=== PATIENT | female | born 1985 | race Asian ===

== ENCOUNTER 2019-08-06 20:28 | Inpatient (IN) | payer OTHER ==
[2019-08-06] VITALS (9 sets, daily range): BP systolic 154–207; BP diastolic 89–117
[~2019-08-06] VITALS: Ht 157.5 cm; Wt 104.0 kg
[~2019-08-06 20:28] MED LIST: PRENATAL VITAMIN
[2019-08-06] MEDS ORDERED: hydrALAzine 20 MG/ML, 1ML ONE ×2 (21:14→22:11)
[2019-08-06] MEDS: LACTATED RINGERS 1,000 ML IV SCH (21:20)
[2019-08-06] MEDS ORDERED: hydrALAzine 20 MG/ML, 1ML IVPush ONE ×3 (21:30)
[2019-08-06] MEDS ORDERED: PLEASE ENTER HEIGHT AND WEIGHT MC SCH (21:30)
[2019-08-06] MEDS ORDERED: LABETALOL 20 MG/4 ML IVPush ONE (21:30)
[2019-08-06 21:47] LABS: AMPHETAMINE SCREEN, URINE Positive (Negative); BARBITURATE SCREEN, URINE Negative (Negative); BENZODIAZEPINE SCREEN, URINE Negative (Negative); CANNABINOID SCREEN, URINE Negative (Negative); COCAINE SCREEN, URINE Negative (Negative); METHADONE SCREEN, URINE Negative (Negative); OPIATE SCREEN, URINE Negative (Negative); PROTEIN/CREATININE RATIO,URINE 4000 (0-200); TOTAL PROTEIN,URINE RANDOM 628 mg/dL (0-12)
[2019-08-06] MEDS ORDERED: hydrALAzine 20 MG/ML, 1ML IV ONE ×2 (22:30→23:30)
[2019-08-06] MEDS ORDERED: ACETAMINOPHEN 325 MG TABLET ONE (23:15)
[2019-08-06] MEDS: ACETAMINOPHEN 325 MG TABLET PO PRN (23:17)
[2019-08-06] MEDS: PHENAZOPYRIDINE 200 MG TABLET PO SCH (23:43)
[2019-08-06] MEDS: CEFTRIAXONE PMX 2GM/50ML 50 ML IV SCH (23:51)
[2019-08-07] VITALS (13 sets, daily range): BP systolic 140–174; BP diastolic 74–100
[2019-08-07] MEDS ORDERED: DIPHENHYDRAMINE 25 MG CAPSULE PO PRN
[2019-08-07] MEDS ORDERED: ACETAMINOPHEN 325 MG TABLET ONE ×3 (02:25→23:43)
[2019-08-07] MEDS: ACETAMINOPHEN 325 MG TABLET PO PRN ×3 (02:26→23:44)
[2019-08-07] MEDS ORDERED: hydrALAzine 20 MG/ML, 1ML IV ONE ×2 (04:00→14:00)
[2019-08-07] MEDS ORDERED: niFEDipine ER 30 MG TABLET.ER ONE (05:38)
[2019-08-07] MEDS: LACTATED RINGERS 1,000 ML IV SCH (05:51)
[2019-08-07] MEDS ORDERED: niFEDipine ER 30 MG TABLET.ER PO SCH (06:00)
[2019-08-07] MEDS ORDERED: hydrALAzine 20 MG/ML, 1ML IVPush ONE ×3 (07:30)
[2019-08-07] MEDS ORDERED: hydrALAzine 20 MG/ML, 1ML ONE ×2 (07:33→14:04)
[2019-08-07] MEDS ORDERED: BETAMETHASONE 6 MG/ML, 5ML IM ONE (07:36)
[2019-08-07] MEDS: BETAMETHASONE 6 MG/ML, 5ML IM SCH (07:48)
[2019-08-07] MEDS ORDERED: OXYcodone/APAP 5/325MG TABLET ONE ×3 (08:23→18:08)
[2019-08-07] MEDS: OXYcodone/APAP 5/325MG TABLET PO PRN ×3 (08:26→18:11)
[2019-08-07] MEDS: PHENAZOPYRIDINE 200 MG TABLET PO SCH ×2 (08:27→20:17)
[2019-08-07] MEDS ORDERED: hydrALAzine 20 MG/ML, 1ML IV PRN (18:00)
[2019-08-07] MEDS ORDERED: MAGNESIUM SULFATE PMX 4GM/100M 100 ML ONE (18:25)
[2019-08-07] MEDS ORDERED: MAGNESIUM SULFATE PMX 2GM/50ML 0 ML ONE (18:26)
[2019-08-07] MEDS ORDERED: MAGNESIUM SULFATE PMX 4GM/100M 100 ML IVPB ONE (18:30)
[2019-08-07] MEDS: MAGNESIUM SULF. PMX 20GM/500ML 500 ML IV SCH (18:53)
[2019-08-07 18:55] LABS: BASOPHILS # (AUTO) 0.01 x10^3/uL (0-0.1); BASOPHILS % (AUTO) 0 % (0-1); EOSINOPHILS # (AUTO) 0.06 x10^3/uL (0-0.4); EOSINOPHILS % (AUTO) 1 % (1-7); LYMPHOCYTES # (AUTO) 1.14 x10^3/uL (1-3.4); LYMPHOCYTES % (AUTO) 15 % (22-44); MEAN CORPUSCULAR HEMOGLOBIN 29.7 pg (27.0-34.8); MEAN PLATELET VOLUME 9.3 fL (7.4-10.4); MONOCYTES # (AUTO) 0.17 x10^3/uL (0.2-0.8); MONOCYTES % (AUTO) 2 % (2-9); NEUTROPHILS # (AUTO) 6.04 x10^3/uL (1.8-6.8); NEUTROPHILS % (AUTO) 82 % (42-75); PLATELET COUNT 165 x10^3/uL (130-400); RED BLOOD COUNT 4.96 x10^6/uL (3.82-5.3)
[2019-08-07 18:59] LABS: ANION GAP 5 mmol/L (5-15); CALCIUM 8.6 mg/dL (8.5-10.1); CHLORIDE 105 mmol/L (98-107)
[2019-08-07 19:04] LABS: ALANINE AMINOTRANSFERASE 27 U/L (12-78); ALKALINE PHOSPHATASE 153 U/L (45-117); BILIRUBIN,TOTAL 0.2 mg/dL (0.2-1.0); CREATININE 0.69 mg/dL (0.55-1.02); TOTAL PROTEIN 6.3 g/dL (6.4-8.2)
[2019-08-07] MEDS ORDERED: NEWBORN KIT ONE (19:05)
[2019-08-07 20:21] LABS: MD MORPH REVIEW ONLY
[2019-08-07 20:23] LABS: <PLATELET ESTIMATE> ADEQUATE; ANISOCYTOSIS 1+; POLYCHROMASIA 1+
[2019-08-07 20:24] LABS: LARGE PLATELETS 1+
[2019-08-07 20:35] LABS: AMPHETAMINE SCREEN, URINE Positive (Negative); BARBITURATE SCREEN, URINE Negative (Negative); BENZODIAZEPINE SCREEN, URINE Negative (Negative); CANNABINOID SCREEN, URINE Negative (Negative); COCAINE SCREEN, URINE Negative (Negative); METHADONE SCREEN, URINE Negative (Negative); OPIATE SCREEN, URINE Negative (Negative)
[2019-08-07] MEDS: CEFTRIAXONE PMX 2GM/50ML 50 ML IV SCH (23:06)
[2019-08-08] MEDS: MAGNESIUM SULF. PMX 20GM/500ML 500 ML IV SCH ×2 (03:12→14:29)
[2019-08-08] MEDS: LACTATED RINGERS 1,000 ML IV SCH ×4 (03:19→20:04)
[2019-08-08] MEDS ORDERED: OXYcodone/APAP 5/325MG TABLET ONE (04:49)
[2019-08-08] MEDS ORDERED: niFEDipine ER 60 MG TABLET.ER PO ONE (04:50)
[2019-08-08] MEDS ORDERED: niFEDipine ER 30 MG TABLET.ER ONE (04:50)
[2019-08-08] MEDS: PHENAZOPYRIDINE 200 MG TABLET PO SCH ×3 (04:53→18:53)
[2019-08-08] MEDS: niFEDipine ER 60 MG TABLET.ER PO SCH (04:55)
[2019-08-08] MEDS: OXYcodone/APAP 5/325MG TABLET PO PRN (04:55)
[2019-08-08 05:40] LABS: BASOPHILS # (AUTO) 0.03 x10^3/uL (0-0.1); BASOPHILS % (AUTO) 0 % (0-1); EOSINOPHILS # (AUTO) 0.13 x10^3/uL (0-0.4); EOSINOPHILS % (AUTO) 1 % (1-7); LYMPHOCYTES # (AUTO) 1.35 x10^3/uL (1-3.4); LYMPHOCYTES % (AUTO) 11 % (22-44); MD NO; MEAN CORPUSCULAR HEMOGLOBIN 29.7 pg (27.0-34.8); MEAN CORPUSCULAR HGB CONC 32.8 g/dL (32.4-35.8); MEAN CORPUSCULAR VOLUME 90.5 fL (80-100); MEAN PLATELET VOLUME 9.3 fL (7.4-10.4); MONOCYTES # (AUTO) 0.53 x10^3/uL (0.2-0.8); MONOCYTES % (AUTO) 4 % (2-9); NEUTROPHILS # (AUTO) 10.76 x10^3/uL (1.8-6.8); NEUTROPHILS % (AUTO) 84 % (42-75); PLATELET COUNT 183 x10^3/uL (130-400); RED BLOOD COUNT 4.62 x10^6/uL (3.82-5.3); RED CELL DISTRIBUTION WIDTH 14.1 % (9.6-15.2)
[2019-08-08 05:48] LABS: CHLORIDE 106 mmol/L (98-107)
[2019-08-08 06:03] LABS: ALANINE AMINOTRANSFERASE 31 U/L (12-78); ALKALINE PHOSPHATASE 151 U/L (45-117); ANION GAP 8 mmol/L (5-15); BILIRUBIN,TOTAL 0.3 mg/dL (0.2-1.0); CALCIUM 7.9 mg/dL (8.5-10.1); CREATININE 0.56 mg/dL (0.55-1.02); TOTAL PROTEIN 6.2 g/dL (6.4-8.2)
[2019-08-08] MEDS ORDERED: DOCUSATE 100 MG CAPSULE ONE (07:58)
[2019-08-08] MEDS ORDERED: ACETAMINOPHEN 325 MG TABLET ONE (07:58)
[2019-08-08] MEDS: ACETAMINOPHEN 325 MG TABLET PO PRN (08:09)
[2019-08-08] MEDS: DOCUSATE 100 MG CAPSULE PO SCH ×2 (08:10→21:00)
[2019-08-08] MEDS: BETAMETHASONE 6 MG/ML, 5ML IM SCH (08:10)
[2019-08-08] MEDS: CEFTRIAXONE PMX 2GM/50ML 50 ML IV SCH (22:51)
[2019-08-09] MEDS: LACTATED RINGERS 1,000 ML IV SCH ×5 (01:30→17:30)
[2019-08-09] MEDS ORDERED: MAGNESIUM SULF. PMX 20GM/500ML 500 ML IV ONE ×3 (01:32→16:18)
[2019-08-09] MEDS: MAGNESIUM SULF. PMX 20GM/500ML 500 ML IV SCH ×3 (01:35→19:11)
[2019-08-09 04:44] LABS: BASOPHILS # (AUTO) 0.04 x10^3/uL (0-0.1); BASOPHILS % (AUTO) 0 % (0-1); EOSINOPHILS # (AUTO) 0.27 x10^3/uL (0-0.4); EOSINOPHILS % (AUTO) 2 % (1-7); LYMPHOCYTES # (AUTO) 1.52 x10^3/uL (1-3.4); LYMPHOCYTES % (AUTO) 9 % (22-44); MD NO; MEAN CORPUSCULAR HGB CONC 33.2 g/dL (32.4-35.8); MEAN CORPUSCULAR VOLUME 90.3 fL (80-100); MEAN PLATELET VOLUME 9.2 fL (7.4-10.4); MONOCYTES # (AUTO) 0.99 x10^3/uL (0.2-0.8); MONOCYTES % (AUTO) 6 % (2-9); NEUTROPHILS # (AUTO) 14.51 x10^3/uL (1.8-6.8); NEUTROPHILS % (AUTO) 84 % (42-75); PLATELET COUNT 197 x10^3/uL (130-400); RED BLOOD COUNT 4.62 x10^6/uL (3.82-5.3)
[2019-08-09 04:45] LABS: ANION GAP 6 mmol/L (5-15); CALCIUM 7.3 mg/dL (8.5-10.1); CHLORIDE 106 mmol/L (98-107)
[2019-08-09 04:49] LABS: ALANINE AMINOTRANSFERASE 50 U/L (12-78); ALKALINE PHOSPHATASE 153 U/L (45-117); BILIRUBIN,TOTAL 0.8 mg/dL (0.2-1.0); CREATININE 0.86 mg/dL (0.55-1.02); TOTAL PROTEIN 6.2 g/dL (6.4-8.2)
[2019-08-09] MEDS ORDERED: hydrALAzine 20 MG/ML, 1ML ONE (05:21)
[2019-08-09] MEDS ORDERED: hydrALAzine 20 MG/ML, 1ML IV ONE (05:30)
[2019-08-09] MEDS ORDERED: niFEDipine ER 60 MG TABLET.ER PO ONE (07:23)
[2019-08-09] MEDS: niFEDipine ER 60 MG TABLET.ER PO SCH (07:26)
[2019-08-09] MEDS ORDERED: DOCUSATE 100 MG CAPSULE ONE (08:00)
[2019-08-09] MEDS: DOCUSATE 100 MG CAPSULE PO SCH ×2 (08:02→21:00)
[2019-08-09] MEDS ORDERED: METHYLERGONOVINE 0.2MG TABLET ONE (10:56)
[2019-08-09] MEDS ORDERED: OXYTOCIN 30U/ 0.9% NaCL 500ML 500 ML ONE (15:26)
[2019-08-09] MEDS ORDERED: METOCLOPRAMIDE 5 MG/ML, 2ML ONE (15:26)
[2019-08-09] MEDS ORDERED: SODIUM CITRATE/CITRIC ACID 30 ML UDC ONE (15:26)
[2019-08-09] MEDS ORDERED: OXYTOCIN 10 UNITS/ML, 1ML ONE (15:37)
[2019-08-09] MEDS ORDERED: ONDANSETRON 2MG/ML, 2ML ONE (15:37)
[2019-08-09] MEDS ORDERED: PHENYLEPHRINE 10 MG/ML ONE (15:37)
[2019-08-09] MEDS ORDERED: CEFAZOLIN 1,000 MG ONE (15:37)
[2019-08-09] MEDS ORDERED: EPHEDRINE 50 MG/ML, 1ML ONE (15:37)
[2019-08-09] MEDS ORDERED: WATER-INJECTION,STERILE 10 ML IV ONE (15:37)
[2019-08-09] MEDS ORDERED: morphine SULFATE/PF 0.5 MG/ML, 10ML ONE (15:43)
[2019-08-09] MEDS ORDERED: MISOPROSTOL 200 MCG TABLET ONE (16:02)
[2019-08-09] MEDS ORDERED: EPINEPHRINE 1 MG/ML, 1ML ONE (16:35)
[2019-08-09] MEDS ORDERED: TRANEXAMIC ACID 1,000 MG in SODIUM CHLORIDE 0.9% 100 ML IVPB ONE (17:00)
[2019-08-09] MEDS: OXYTOCIN 30U/ 0.9% NaCL 500ML 500 ML IV SCH (17:00)
[2019-08-09] MEDS ORDERED: BISACODYL 10 MG SUPP PR PRN (17:00)
[2019-08-09] MEDS ORDERED: OXYcodone/APAP 5/325MG TABLET PO PRN ×2 (17:00)
[2019-08-09] MEDS ORDERED: MISOPROSTOL 200 MCG TABLET PR PRN (17:00)
[2019-08-09] MEDS ORDERED: MORPHINE SULFATE 4 MG/ML, 1ML IVPush PRN (17:00)
[2019-08-09] MEDS ORDERED: IBUPROFEN 600 MG TABLET PO PRN (17:00)
[2019-08-09] MEDS ORDERED: ONDANSETRON 2MG/ML, 2ML IV PRN (17:00)
[2019-08-09] MEDS ORDERED: AZITHROMYCIN 500 MG in SODIUM CHLORIDE 0.9% 250 ML IV ONE (18:00)
[2019-08-09] MEDS ORDERED: morphine SULFATE 10 MG/ML, 1ML ONE (19:22)
[2019-08-10] MEDS ORDERED: ZOLPIDEM 5MG TABLET ONE (00:45)
[2019-08-10] MEDS ORDERED: ZOLPIDEM 5MG TABLET PO ONE (01:00)
[2019-08-10] MEDS: LACTATED RINGERS 1,000 ML IV SCH ×4 (01:00→09:24)
[2019-08-10] MEDS: OXYTOCIN 30U/ 0.9% NaCL 500ML 500 ML IV SCH (03:00)
[2019-08-10] MEDS ORDERED: MAGNESIUM SULF. PMX 20GM/500ML 500 ML IV ONE ×2 (03:20→12:24)
[2019-08-10] MEDS: MAGNESIUM SULF. PMX 20GM/500ML 500 ML IV SCH ×2 (03:23→12:25)
[2019-08-10 05:55] LABS: BASOPHILS # (AUTO) 0.04 x10^3/uL (0-0.1); BASOPHILS % (AUTO) 0 % (0-1); EOSINOPHILS # (AUTO) 0.18 x10^3/uL (0-0.4); EOSINOPHILS % (AUTO) 1 % (1-7); LYMPHOCYTES # (AUTO) 2.16 x10^3/uL (1-3.4); LYMPHOCYTES % (AUTO) 12 % (22-44); MD NO; MEAN CORPUSCULAR HEMOGLOBIN 29.8 pg (27.0-34.8); MEAN CORPUSCULAR HGB CONC 32.7 g/dL (32.4-35.8); MEAN CORPUSCULAR VOLUME 91.2 fL (80-100); MEAN PLATELET VOLUME 9.3 fL (7.4-10.4); MONOCYTES % (AUTO) 7 % (2-9); NEUTROPHILS # (AUTO) 14.06 x10^3/uL (1.8-6.8); NEUTROPHILS % (AUTO) 80 % (42-75); PLATELET COUNT 208 x10^3/uL (130-400); RED BLOOD COUNT 4.41 x10^6/uL (3.82-5.3); RED CELL DISTRIBUTION WIDTH 14.2 % (9.6-15.2)
[2019-08-10 07:51] VITALS: BP 159/96
[2019-08-10] MEDS ORDERED: OXYcodone/APAP 5/325MG TABLET ONE ×3 (07:56→17:05)
[2019-08-10] MEDS: OXYcodone/APAP 5/325MG TABLET PO PRN ×4 (07:59→21:09)
[2019-08-10] MEDS ORDERED: niFEDipine ER 60 MG TABLET.ER PO ONE (09:03)
[2019-08-10] MEDS ORDERED: DOCUSATE 100 MG CAPSULE ONE (09:03)
[2019-08-10] MEDS: DOCUSATE 100 MG CAPSULE PO SCH (09:10)
[2019-08-10] MEDS: niFEDipine ER 60 MG TABLET.ER PO SCH (09:10)
[2019-08-10] MEDS ORDERED: hydrALAzine 20 MG/ML, 1ML ONE ×2 (10:54→12:46)
[2019-08-10] MEDS ORDERED: hydrALAzine 20 MG/ML, 1ML IV ONE ×2 (11:00→13:00)
[2019-08-10 11:41] LABS: AMPHETAMINE SCREEN, URINE Negative (Negative); BARBITURATE SCREEN, URINE Negative (Negative); BENZODIAZEPINE SCREEN, URINE Negative (Negative); CANNABINOID SCREEN, URINE Negative (Negative); COCAINE SCREEN, URINE Negative (Negative); METHADONE SCREEN, URINE Negative (Negative); OPIATE SCREEN, URINE Negative (Negative)
[2019-08-10] MEDS ORDERED: LORazepam 2 MG/ML, 1ML ONE (12:16)
[2019-08-10] MEDS ORDERED: LORazepam 2 MG/ML, 1ML IVPush ONE (12:30)
[2019-08-10 18:09] VITALS: BP 97/67
[2019-08-10 20:20] VITALS: BP 124/81
[2019-08-10] MEDS: PRENATAL VIT/IRON/FA 1 EACH TABLET PO SCH (21:00)
[2019-08-10] MEDS ORDERED: ZOLPIDEM 5MG TABLET PO PRN (21:00)
[2019-08-10] MEDS: SIMETHICONE 80 MG CHEW TAB PO PRN (21:09)
[2019-08-10] MEDS: DOCUSATE 100 MG CAPSULE PO PRN (21:10)
[2019-08-11] VITALS: BP 148/97
[2019-08-11 00:40] VITALS: BP 155/95
[2019-08-11] MEDS: OXYcodone/APAP 5/325MG TABLET PO PRN ×3 (00:56→08:55)
[2019-08-11 02:28] VITALS: BP 159/96
[2019-08-11 05:06] VITALS: BP 154/62
[2019-08-11] MEDS: SIMETHICONE 80 MG CHEW TAB PO PRN (05:08)
[2019-08-11] MEDS: niFEDipine ER 60 MG TABLET.ER PO SCH (08:55)
[2019-08-11] MEDS: DOCUSATE 100 MG CAPSULE PO PRN (08:55)
[2019-08-11 09:00] VITALS: BP 153/65
[2019-08-11] MEDS: PRENATAL VIT/IRON/FA 1 EACH TABLET PO SCH (09:00)
[2019-08-11 12:30] VITALS: BP 105/68
[2019-08-11] MEDS ORDERED: IBUP-1223 PO (12:46)
[2019-08-11] MEDS ORDERED: NIFE30TA2 PO (12:47)
[2019-08-11] MEDS ORDERED: HYDR-3342 PO (12:49)
== END 2019-08-11 13:00 | disposition home or self-care (01) | DRG 787 ==
LOC: LDOP 20:28 → LDIP 22:40 → 2NW 08-10 17:37
PROVIDERS: ADMIT Obstetrics & Gynecology; ATTEND Obstetrics & Gynecology
PROC: 10D00Z1 Extraction of Products of Conception, Low, Open Approach (ICD-10-PCS; principal; 2019-08-09)
DX: O36.5930 Maternal care for other known or suspected poor fetal growth, third trimester, not applicable or unspecified (principal); O99.324 Drug use complicating childbirth; O99.334 Smoking (tobacco) complicating childbirth; F17.200 Nicotine dependence, unspecified, uncomplicated; O99.214 Obesity complicating childbirth; O75.89 Other specified complications of labor and delivery; R31.0 Gross hematuria; E66.01 Morbid (severe) obesity due to excess calories; O11.4 Pre-existing hypertension with pre-eclampsia, complicating childbirth; Z3A.32 32 weeks gestation of pregnancy; Z37.0 Single live birth; Z79.899 Other long term (current) drug therapy; Z81.8 Family history of other mental and behavioral disorders; Z82.49 Family history of ischemic heart disease and other diseases of the circulatory system
CPT/HCPCS: 36415; 74181; 76770; 76805; 80053; 80307; 82570; 82803; 83615; 83735; 84156; 84443; 84550; 85025; 86592; 86762; 86850; 86900; 87070; 87075; 87205; 87340; 87389; 88307; 93005; G0378; J0171; J0456; J0690; J0696; J0702; J2274; J2405; J0360; J2060; J2270; J2370; J2590; J3475; J3490; J7050; J7120